=== PATIENT | female | born 2005 | race African-American/Black ===

== ENCOUNTER 2024-07-18 06:13 | Emergency (ER) | payer OTHER ==
[2024-07-18 06:37] VITALS: BMI 18.6
[2024-07-18] MEDS ORDERED: ONDANSETRON 4 MG/2 ML VIAL ONE (06:39)
[2024-07-18] MEDS ORDERED: ACETAMINOPHEN INJECTION 100 ML ONE (06:39)
[2024-07-18] MEDS: SODIUM CHLORIDE 1,000 ML IV ONE (06:59)
[2024-07-18] MEDS: ACETAMINOPHEN 1000 MG/100 ML BAG IVPB ONE (06:59)
[2024-07-18] MEDS: ONDANSETRON 4 MG/2 ML VIAL IVPB ONE (06:59)
[2024-07-18 07:20] LABS: HEMATOCRIT 39.6 % (32.4-45.2); HEMOGLOBIN 13.2 G/dL (10.7-15.3); MCHC 33.2 g/dl (32.0-36.0); MEAN CELL VOLUME 90.3 fl (80-96); MEAN PLT VOLUME 7.9 fl (7.5-11.1); RBC 4.39 10^6/uL (3.60-5.2); WHITE BLOOD COUNT 9.2 10^3/uL (4.0-10.8)
[2024-07-18 08:16] LABS: ALBUMIN 4.8 g/dl (3.4-5.0); BILIRUBIN,TOTAL 0.9 mg/dl (0.2-1); CALCIUM 9.2 mg/dl (8.5-10.1); CREATININE 0.9 mg/dl (0.6-1.3); POTASSIUM 3.3 mmol/L (3.5-5.1); TOT PROT 7.9 g/dl (6.4-8.2)
[2024-07-18 08:17] VITALS: BP 90/43; PULSE 104; RESP 17; TEMP 99.7
[2024-07-18] MEDS: SODIUM CHLORIDE 1,000 ML IV STA (08:17)
[2024-07-18 13:11] LABS: HIV INTERPRETATION NEGATIVE (NEGATIVE)
== END 2024-07-18 09:34 | disposition home or self-care (01) ==
LOC: FER 06:13
PROC: 3E033NZ Introduction of Analgesics, Hypnotics, Sedatives into Peripheral Vein, Percutaneous Approach (ICD-10-PCS; principal; 2024-07-18)
PROC: 3E033GC Introduction of Other Therapeutic Substance into Peripheral Vein, Percutaneous Approach (ICD-10-PCS; 2024-07-18)
PROC: 3E0337Z Introduction of Electrolytic and Water Balance Substance into Peripheral Vein, Percutaneous Approach (ICD-10-PCS; 2024-07-18)
PROC: 3E0337Z Introduction of Electrolytic and Water Balance Substance into Peripheral Vein, Percutaneous Approach (ICD-10-PCS; 2024-07-18)
DX: J10.1 Influenza due to other identified influenza virus with other respiratory manifestations (principal); J02.9 Acute pharyngitis, unspecified; R11.2 Nausea with vomiting, unspecified; R50.9 Fever, unspecified; R05.9 Cough, unspecified; Z20.822 Contact with and (suspected) exposure to COVID-19
CPT/HCPCS: 0241U-QW; 36415; 80053; 85027; 86803; 87389; 87651; 99284-25; J0131